=== PATIENT | female | born 1960 ===

== ENCOUNTER 2018-01-26 09:18 | Day surgery (SDC) | payer OTHER | END 2018-01-26 16:20 | disposition home or self-care (01) | LOC: AMB-ENDOS 09:18 | DX: D12.0 Benign neoplasm of cecum (principal); D12.3 Benign neoplasm of transverse colon; D12.8 Benign neoplasm of rectum; D12.4 Benign neoplasm of descending colon; K57.30 Diverticulosis of large intestine without perforation or abscess without bleeding; B48.8 Other specified mycoses; K64.8 Other hemorrhoids ==

== ENCOUNTER 2021-11-26 07:08 | Day surgery (SDC) | payer OTHER | END 2021-11-26 13:12 | disposition home or self-care (01) | LOC: AMB-ENDOS 07:08 → CIR.AMB 14:30 | PROVIDERS: ATTEND Colon & Rectal Surgery | DX: K64.4 Residual hemorrhoidal skin tags (principal) ==